=== PATIENT | male | born 1950 | race Caucasian/White ===

== ENCOUNTER 2016-07-24 05:10 | Inpatient (IN) | payer OTHER ==
[~2016-07-24] VITALS: Ht 175.3 cm; Wt 128.1 kg
--- NOTE | ~2016-07-24 | HC ---
[facility] [place] [address] CONSULTATION Name: WESTON FUENTES Room #: 241-P [facility] IN M.R.#: [id number] Admission: 07/24/16 Attend Phys: Cas Power MD Discharge: Date of : 46 Report #: [id number] THIS REPORT FOR: //name// CC: Cas Calabrese DATE OF SERVICE: 07/25/2016 CHIEF COMPLAINT: Medical management. HISTORY OF PRESENT ILLNESS: The patient is a 66-year-old male with a history of coronary artery disease, status post CABG x 6 and is needing medical management. In addition to his coronary artery disease, he also has a history of COPD, chronic back pain, and anxiety. He is currently postop day #1, is sitting up in a chair and is doing fair at this time. Other than postoperative pain, he denies any other issues. Nurses report no other problems. PAST MEDICAL HISTORY: Coronary artery disease, status post CABG; chronic back pain, COPD, and chronic narcotic use. MEDICATIONS: He is on Flexeril 10 mg t.i.d., Ativan 1 mg t.i.d. p.r.n., hydroxyzine 25 mg at bedtime, doxycycline 100 b.i.d., Vaughn p.r.n., albuterol p.r.n., 15 daily, piroxicam 10 mg b.i.d., Revatio 20 mg, and trazodone 150 b.i.d. SOCIAL HISTORY: He has smoked 3 packs per day for 15 years. He quit smoking. Does not drink heavily. FAMILY HISTORY: Reviewed and noncontributory. ALLERGIES: ADHESIVE TAPE. PHYSICAL EXAMINATION: VITAL SIGNS: Temperature 97.8, pulse 69, blood pressure 105/72, O2 sat 100% on 1 liter. GENERAL: He is sleepy, sitting up in a chair, but arousable, in no acute respiratory distress. HEENT: Normocephalic, atraumatic. Pupils equal. NECK: Supple. CARDIOVASCULAR: Regular rate and rhythm. No murmurs. CHEST: Dressings chest tubes were clean, dry and intact. ABDOMEN: Soft, no distention or tenderness. EXTREMITIES: No edema with STDs. NEUROLOGIC: Nonfocal. LABORATORY DATA AND TESTING: Chest x-ray showed no acute process. White count [facility] [address] [place] [address] CONSULTATION Name: WESTON FUENTES Room #: 241-P [facility] IN .R.#: [id number] Admission: 07/24/16 Attend Phys: Cas Power MD Discharge: Date of : 46 Report #: [id number] of 40, H and H of 10 and 31, platelets 132. Sodium 140, potassium 4.4, BUN and creatinine 12 and 1.1, total CO2 of 24. ASSESSMENT AND PLAN: 1. Status post coronary artery bypass graft x 6. Continue postop care per Cardiology. 2. Chronic obstructive pulmonary disease. Continue p.r.n. nebs. 3. Chronic back pain with chronic narcotics use. Continue pain management. 4. Morbid obesity. 5. Deep venous thrombosis prophylaxis with sequential compression devices. Thank you kindly for this consult. We will follow with you. By: 1412 15 Rosamaria Michael MD /nt
--- NOTE | ~2016-07-24 | O ---
[facility] [place] [address] OPERATIVE REPORT Name: WESTON FUENTES Room #: 217-P [facility] IN M.R.#: [id number] Admission: 07/24/16 Attend Phys: Cas Power MD Discharge: Date of : 46 Report #: [id number] THIS REPORT FOR: //name// CC: Cas Calabrese DATE OF SURGERY: 07/24/2016 PREOPERATIVE DIAGNOSIS: Coronary artery disease. POSTOPERATIVE DIAGNOSIS: Coronary artery disease. OPERATION: Coronary artery bypass x 6 including left internal mammary artery to left anterior descending artery, saphenous vein to diagonal, ramus, marginal 1, and marginal 2 and saphenous vein to posterior descending artery and endoscopic harvest, left greater saphenous vein. SURGEON: Cas Power M.D. LINSEED OIL ORDER FILLER: Liam. ANESTHESIA: General. INDICATIONS: The patient is a 66-year-old with severe 3-vessel coronary artery disease. The patient presented over the past weekend with heart failure and was found to have important 3-vessel coronary artery disease, left ventricular function was reasonable. FINDINGS AND TECHNIQUE: After general anesthesia was established, saphenous vein was harvested using an endoscopic approach and prepared for use as a conduit. Exposure was obtained through median sternotomy. Left internal mammary artery was harvested. Pericardial well was made. Cannulation sutures were placed. Heparin was given. Aorta was cannulated. The right atrium was cannulated. Cardioplegia needle was positioned in the aortic root. Retrograde cardioplegic catheter was placed in the coronary sinus. Cardiopulmonary bypass was established. The aorta was cross clamped antegrade then retrograde cardioplegia were given. Ice was poured in the pericardial well. The heart was stopped. During electromechanical arrest, the distal anastomoses were performed and end-to-side anastomosis was made between the vein and the posterior descending artery. Cold cardioplegia was given. A separate segment of vein was sewn in end-to-side fashion to the second marginal artery. Cold cardioplegia was given. Same segment of vein was sewn in [id number]-lv-hpmp fashion to the first marginal artery. Cold cardioplegia was given. Same segment of vein was sewn in [facility] [address] [place] [address] OPERATIVE REPORT Name: WESTON FUENTES Room #: 217-P [facility] IN M.R.#: [id number] Admission: 07/24/16 Attend Phys: Cas Power MD Discharge: Date of : 46 Report #: [id number] obtd-rt-[id number] fashion in the ramus intermedius. Cold cardioplegia was given. Same segment of vein was sewn in dppn-jl-rtmm fashion to the diagonal artery. Cold cardioplegia was given. Left internal mammary artery was sewn in end-to-side fashion to the left anterior descending artery. Patency of this vessel was checked with the temperature technique. Cold cardioplegia was given. Two proximal anastomoses were performed. When these were complete, warm retrograde cardioplegia was given followed by warm continuous blood to the coronary sinus. When this infusion was complete, crossclamp was removed, de-airing maneuvers were performed. The anastomoses were inspected and found to be satisfactory. As the patient warmed, nice cardiac activity resumed, chest tubes and pacing wires were placed, a marker was placed around the proximal anastomoses. When the patient was warmed, he was weaned from cardiopulmonary bypass. Venous cannula was removed. Protamine was given, the aortic cannula was removed. Flows were measured in the bypass grafts. Flow in the graft to the right side was 30 mL per minute. Flow in the graft to the left side was 100 mL per minute. A good Doppler signal was audible in the internal mammary artery. Total cross clamp time was 143 minutes, total pump time was 166 minutes. When hemostasis was satisfactory, chest was irrigated with antibiotic solution and closed in the usual fashion. The patient was taken to the Intensive Care Unit in good condition having tolerated the procedure well. All counts reported as correct. <ELECTRONICALLY SIGNED> By: Cas Power MD 07/30/162009 1008 1211 Cas Power MD /nt
--- NOTE | ~2016-07-24 | HC ---
[facility] [place] [address] CONSULTATION Name: WESTON FUENTES Room #: 217-P [facility] IN M.R.#: [id number] Admission: 07/24/16 Attend Phys: Cas Power MD Discharge: Date of : 46 Report #: [id number] THIS REPORT FOR: //name// CC: Cas Calabrese DATE OF SERVICE: 07/30/2016 IDENTIFICATION: Psychiatric consultation is requested for delirium. HISTORY OF PRESENT ILLNESS: The patient is a 66-year-old male with no reported underlying psychiatric history of anxiety. He is not reported to have any history of cruzito, psychosis or substance abuse. The patient is postop day #6 after coronary artery bypass graft. He has had intermittent confusion, disorientation, agitation, anxiety and insomnia. Mental status had cleared and plan was for him to go home today, but confusion returned once again. He has been wanting to leave the hospital. ALLERGIES: Reviewed, available in the chart. MEDICATIONS: Reviewed and include Ativan 1 mg every 6 hours as needed and Haldol 1 mg every 4 hours as needed. PAST MEDICAL HISTORY: Coronary artery disease, status post coronary artery bypass graft and COPD. FAMILY HISTORY: Noncontributory. SOCIAL HISTORY: The patient's daughter is supportive and involved in his care. He has quit smoking cigarettes. MENTAL STATUS EXAMINATION: Adequate hygiene, restless, mildly slurred speech. Thought process tangential. No hallucinations or delusions. No suicidal or homicidal ideation. Confused, poor short-term memory. Poor attention and concentration. Insight and judgment overall poor. DIAGNOSIS: Delirium. PLAN: I agree with the use of Haldol. We will add an oral dose to be given as needed as well. Keep benzodiazepines to a minimum, but will not discontinue them entirely as the patient would be at risk for withdrawal symptoms. Currently, the patient remains confused and is unstable for discharge. Thank you for this consultation. I reviewed the treatment plan with the [facility] [address] [place] [address] CONSULTATION Name: WESTON FUENTES Room #: 217-P [facility].#: [id number] Admission: 07/24/16 Attend Phys: Cas Power MD Discharge: Date of : 46 Report #: [id number] patient's daughter. Please do not hesitate to contact me with any questions or concerns. By: [id number] Marlen Melchor MD /nt
--- NOTE | ~2016-07-24 | EKG ---
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 : 1950 Requested By: Abhi Wheeler Order Number: [id number] MD: Harish Veliz Measurements Intervals [place] Rate: 73 P: 54 FL: 163 QRS: 20 QRSD: 90 T: 28 QT: 510 QTc: 563 Interpretive Statements Sinus rhythm Small inferior Q waves Prolonged QT interval Compared to ECG 07/18/2016 20:16:35 Nons[address] change in the ST in T wave segments Electronically Signed On 07-25-2016 9:12:08 TELEVISION MECHANIC by Harish Veliz [email or web address] <ELECTRONICALLY SIGNED> By: Harish Veliz MD, [facility] 07/25/16911 1644 164 Harish Veliz MD, [facility] /EPI
--- NOTE | ~2016-07-24 | EKG ---
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: joseph : 1950 Requested By: Abhi Wheeler Order Number: [id number] MD: Harish Veliz Measurements Intervals [place] Rate: 67 P: 47 [place]: 157 QRS: 10 QRSD: 96 T: 0 QT: 491 QTc: 519 Interpretive Statements Sinus rhythm Inferior infarct, old Nonspecific T wave abnormality Compared to ECG 07/24/2016 16:44:20 No significant change was found Electronically Signed On 07-28-2016 9:49:07 CDT by Harish Veliz [email or web address] <ELECTRONICALLY SIGNED> By: Harish Veliz MD, [facility] 07/28/16 0949 3 3 Harish Veliz MD, [facility] /EPI
[~2016-07-24 05:10] MED LIST: ASPIR 8181 MG PO; ATIVAN1 MG PO; ATORVASTATIN CA40 MG PO; DOXYCYCLINE 10100 MG PO; FELDENE10 MG PO; FLEXERIL PO; HYDROXYZINE HCL25 M1 PO; NITROGLYCERIN0.4 MG SUBLING; NORCO 10-325 T1 EACH PO; PHENTERMINE HCL15 MG PO; REVATIO20 MG PO; TOPROL XL25 MG PO; TRAZODONE 150150 M1 PO; VALIUM5 MG PO; VENTOLIN HFA 1818 GM INH
[2016-07-24 06:42] LABS: URINE BILIRUBIN NEGATIVE (Negative); URINE BLOOD NEGATIVE (Negative); URINE COLOR YELLOW; URINE GLUCOSE-RANDOM* NEGATIVE (Negative); URINE KETONES NEGATIVE (Negative); URINE NITRITE NEGATIVE (Negative); URINE PROTEIN (DIPSTICK) NEGATIVE (Negative); URINE UROBILINOGEN 0.2 E.U./dl (0.2-1.0)
[2016-07-24 14:44] LABS: HEMATOCRIT 30.6 % (42.0-52.0); HEMOGLOBIN 10.1 gm/dL (14.0-18.0); MCH 27.7 pg (26.0-34.0); MCHC 33.1 g/dL (28.0-37.0); MCV 83.8 fL (80.0-100.0); RBC 3.66 mil/uL (4.50-6.00); RDW 14.2 % (10.5-14.5); WBC 18.5 thou/uL (4.0-11.0)
[2016-07-24 15:02] LABS: APTT 28.2 Seconds (24.5-32.8); FIBRINOGEN 150.2 mg/dL (210-360); INR 1.3; PROTIME 13.2 Seconds (9.3-11.4)
[2016-07-24 15:11] LABS: POC BE 2 mmol/L (-2.0 to +3.0); POC CA IONIZED 4.1 mg/dL (4.5-5.3); POC FiO2 100 %; POC GLUCOSE 137 mg/dL (70-99); POC HCO3 27.5 mmol/L (22.0-26.0); POC HEMOGLOBIN 9.2 gm/dL (14.0-18.0); POC POTASSIUM 5.9 mmol/L (3.5-5.1); POC SODIUM 133 mmol/L (136-145); POC pCO2 46.8 mmHg (35.0-45.0); POC pH 7.377 (7.360-7.450)
[2016-07-24 15:11] LABS: POC BE -3 mmol/L (-2.0 to +3.0); POC CA IONIZED 4.2 mg/dL (4.5-5.3); POC FiO2 100 %; POC GLUCOSE 124 mg/dL (70-99); POC HCO3 23.2 mmol/L (22.0-26.0); POC HEMOGLOBIN 10.2 gm/dL (14.0-18.0); POC POTASSIUM 4.6 mmol/L (3.5-5.1); POC SODIUM 134 mmol/L (136-145); POC pCO2 46.6 mmHg (35.0-45.0); POC pH 7.306 (7.360-7.450)
[2016-07-24 15:11] LABS: POC BE 2 mmol/L (-2.0 to +3.0); POC CA IONIZED 4.1 mg/dL (4.5-5.3); POC FiO2 100 %; POC GLUCOSE 135 mg/dL (70-99); POC HEMOGLOBIN 9.5 gm/dL (14.0-18.0); POC POTASSIUM 5.8 mmol/L (3.5-5.1); POC SODIUM 133 mmol/L (136-145); POC pCO2 47.2 mmHg (35.0-45.0); POC pH 7.366 (7.360-7.450)
[2016-07-24 15:11] LABS: POC BE 1 mmol/L (-2.0 to +3.0); POC CA IONIZED 4.1 mg/dL (4.5-5.3); POC FiO2 100 %; POC GLUCOSE 127 mg/dL (70-99); POC HEMOGLOBIN 9.9 gm/dL (14.0-18.0); POC POTASSIUM 4.6 mmol/L (3.5-5.1); POC SODIUM 133 mmol/L (136-145); POC pCO2 51.6 mmHg (35.0-45.0); POC pH 7.326 (7.360-7.450)
[2016-07-24 15:11] LABS: POC BE 1 mmol/L (-2.0 to +3.0); POC CA IONIZED 4.2 mg/dL (4.5-5.3); POC FiO2 80 %; POC GLUCOSE 127 mg/dL (70-99); POC HCO3 26.7 mmol/L (22.0-26.0); POC HEMOGLOBIN 9.5 gm/dL (14.0-18.0); POC POTASSIUM 4.9 mmol/L (3.5-5.1); POC SODIUM 133 mmol/L (136-145); POC pCO2 46.6 mmHg (35.0-45.0); POC pH 7.366 (7.360-7.450)
[2016-07-24 15:11] LABS: POC BE 1 mmol/L (-2.0 to +3.0); POC CA IONIZED 4.4 mg/dL (4.5-5.3); POC FiO2 100 %; POC GLUCOSE 129 mg/dL (70-99); POC HEMOGLOBIN 11.9 gm/dL (14.0-18.0); POC POTASSIUM 4.3 mmol/L (3.5-5.1); POC SODIUM 136 mmol/L (136-145); POC pCO2 42.1 mmHg (35.0-45.0); POC pH 7.399 (7.360-7.450)
[2016-07-24 15:11] LABS: POC BE 3 mmol/L (-2.0 to +3.0); POC CA IONIZED 4.5 mg/dL (4.5-5.3); POC FiO2 100 %; POC GLUCOSE 99 mg/dL (70-99); POC HCO3 27.9 mmol/L (22.0-26.0); POC HEMOGLOBIN 12.9 gm/dL (14.0-18.0); POC POTASSIUM 4.6 mmol/L (3.5-5.1); POC SODIUM 137 mmol/L (136-145); POC pCO2 43.5 mmHg (35.0-45.0); POC pH 7.415 (7.360-7.450)
[2016-07-24 15:11] LABS: POC BE -2 mmol/L (-2.0 to +3.0); POC CA IONIZED 4.8 mg/dL (4.5-5.3); POC FiO2 100 %; POC GLUCOSE 121 mg/dL (70-99); POC HCO3 23.2 mmol/L (22.0-26.0); POC HEMOGLOBIN 9.2 gm/dL (14.0-18.0); POC SODIUM 134 mmol/L (136-145); POC pCO2 41.6 mmHg (35.0-45.0); POC pH 7.356 (7.360-7.450)
[2016-07-24 15:16] LABS: POC BE 2 mmol/L (-2.0 to +3.0); POC CA IONIZED 4.1 mg/dL (4.5-5.3); POC FiO2 100 %; POC GLUCOSE 135 mg/dL (70-99); POC HCO3 27.6 mmol/L (22.0-26.0); POC HEMOGLOBIN 9.2 gm/dL (14.0-18.0); POC POTASSIUM 5.1 mmol/L (3.5-5.1); POC SODIUM 132 mmol/L (136-145); POC pCO2 47.6 mmHg (35.0-45.0); POC pH 7.371 (7.360-7.450)
[2016-07-24 15:16] LABS: POC BE -2 mmol/L (-2.0 to +3.0); POC CA IONIZED 4.6 mg/dL (4.5-5.3); POC FiO2 100 %; POC GLUCOSE 114 mg/dL (70-99); POC HCO3 23.9 mmol/L (22.0-26.0); POC HEMOGLOBIN 11.6 gm/dL (14.0-18.0); POC POTASSIUM 4.6 mmol/L (3.5-5.1); POC SODIUM 137 mmol/L (136-145); POC pCO2 44.9 mmHg (35.0-45.0); POC pH 7.333 (7.360-7.450)
[2016-07-24 15:30] LABS: ABG SAMPLE TYPE ARTERIAL; BE(vivo) -3.4 mmol/L (-2 to +3); HCO3 22.4 mmol/L (22.0-26.0); LACTATE 3.04 mmol/L (0.5-2.0); O2(CT) 16.7 mL/dL (15.0-23.0); O2Hb 96.8 % (92.0-98.0); PCO2 43.4 mmHg (35.0-45.0); PO2 129.5 mmHg (80.0-100.0); pH 7.331 (7.360-7.450); sO2 98.4 % (92.0-98.0); tCO2 23.8 mmol/L (24.0-30.0)
[2016-07-24 15:31] LABS: ABG COMMENT CMV; STICK SITE ALINE; TIDAL VOLUME 670 ml
[2016-07-24 15:46] LABS: HEMATOCRIT 33.9 % (42.0-52.0); HEMOGLOBIN 11.4 gm/dL (14.0-18.0); MCH 27.7 pg (26.0-34.0); MCHC 33.5 g/dL (28.0-37.0); MCV 82.6 fL (80.0-100.0); RBC 4.1 mil/uL (4.50-6.00); RDW 14.2 % (10.5-14.5); WBC 20.1 thou/uL (4.0-11.0)
[2016-07-24 15:55] LABS: CREATININE 1.2 mg/dL (0.6-1.3); POTASSIUM 4.6 mmol/L (3.5-5.1)
[2016-07-24 19:31] LABS: HEMATOCRIT 33.5 % (42.0-52.0); HEMOGLOBIN 11.1 gm/dL (14.0-18.0); MCH 27.7 pg (26.0-34.0); MCHC 33.1 g/dL (28.0-37.0); MCV 83.6 fL (80.0-100.0); RDW 14.3 % (10.5-14.5)
[2016-07-24 19:34] LABS: ABG SAMPLE TYPE ARTERIAL; BE(vivo) -4.5 mmol/L (-2 to +3); HCO3 21.7 mmol/L (22.0-26.0); LACTATE 2.28 mmol/L (0.5-2.0); O2Hb 97.3 % (92.0-98.0); PCO2 44.3 mmHg (35.0-45.0); STICK SITE LINE; pH 7.307 (7.360-7.450); sO2 98.8 % (92.0-98.0)
[2016-07-24 19:35] LABS: TIDAL VOLUME 670 ml
[2016-07-24 19:45] LABS: CALCIUM 8.1 mg/dL (8.5-10.1); CREATININE 1.4 mg/dL (0.6-1.3); POTASSIUM 5.3 mmol/L (3.5-5.1)
[2016-07-24 20:37] LABS: ABG SAMPLE TYPE ARTERIAL; HCO3 22.3 mmol/L (22.0-26.0); O2(CT) 15.7 mL/dL (15.0-23.0); O2Hb 97.8 % (92.0-98.0); PCO2 36.6 mmHg (35.0-45.0); PO2 199.6 mmHg (80.0-100.0); STICK SITE LINE; TIDAL VOLUME 670 ml; pH 7.403 (7.360-7.450); sO2 99.4 % (92.0-98.0); tCO2 23.4 mmol/L (24.0-30.0)
[2016-07-25 01:45] LABS: ABG SAMPLE TYPE ARTERIAL; BE(vivo) -2.3 mmol/L (-2 to +3); HCO3 23.1 mmol/L (22.0-26.0); LACTATE 2.49 mmol/L (0.5-2.0); O2(CT) 14.5 mL/dL (15.0-23.0); PCO2 42.3 mmHg (35.0-45.0); PO2 76.3 mmHg (80.0-100.0); STICK SITE LINE; pH 7.355 (7.360-7.450); sO2 94.7 % (92.0-98.0); tCO2 24.4 mmol/L (24.0-30.0)
[2016-07-25 01:46] LABS: ABG COMMENT CPAP TRIAL; FIO2 40 %; Pressure Support 6 cm H20
[2016-07-25 03:17] LABS: ABG SAMPLE TYPE ARTERIAL; BE(vivo) -2.4 mmol/L (-2 to +3); HCO3 23.8 mmol/L (22.0-26.0); LACTATE 2.24 mmol/L (0.5-2.0); O2(CT) 15.4 mL/dL (15.0-23.0); O2Hb 96.6 % (92.0-98.0); PCO2 46.9 mmHg (35.0-45.0); sO2 98.1 % (92.0-98.0); tCO2 25.2 mmol/L (24.0-30.0)
[2016-07-25 03:18] LABS: Face Shield 50 %; STICK SITE LINE; VDS POST EXTUBATION cc; pH 7.323 (7.360-7.450)
[2016-07-25 04:56] LABS: HEMATOCRIT 31.3 % (42.0-52.0); HEMOGLOBIN 10.4 gm/dL (14.0-18.0); MCH 27.7 pg (26.0-34.0); MCHC 33.1 g/dL (28.0-37.0); MCV 83.7 fL (80.0-100.0); RBC 3.74 mil/uL (4.50-6.00); RDW 14.6 % (10.5-14.5); WBC 14.3 thou/uL (4.0-11.0)
[2016-07-25 05:07] LABS: CALCIUM 8.2 mg/dL (8.5-10.1); CREATININE 1.1 mg/dL (0.6-1.3); POTASSIUM 4.4 mmol/L (3.5-5.1)
[2016-07-26 04:38] LABS: HEMATOCRIT 26.2 % (42.0-52.0); HEMOGLOBIN 8.7 gm/dL (14.0-18.0); MCH 27.6 pg (26.0-34.0); MCHC 33.1 g/dL (28.0-37.0); MCV 83.3 fL (80.0-100.0); RBC 3.15 mil/uL (4.50-6.00); RDW 14.7 % (10.5-14.5); WBC 14.3 thou/uL (4.0-11.0)
[2016-07-26 04:53] LABS: CALCIUM 8.2 mg/dL (8.5-10.1); CREATININE 0.9 mg/dL (0.6-1.3); POTASSIUM 3.9 mmol/L (3.5-5.1)
[2016-07-27 06:23] LABS: HEMATOCRIT 24.7 % (42.0-52.0); HEMOGLOBIN 8.3 gm/dL (14.0-18.0); MCH 27.7 pg (26.0-34.0); MCHC 33.6 g/dL (28.0-37.0); MCV 82.6 fL (80.0-100.0); RBC 2.99 mil/uL (4.50-6.00); RDW 13.9 % (10.5-14.5); WBC 11.9 thou/uL (4.0-11.0)
[2016-07-27 06:38] LABS: CALCIUM 8.1 mg/dL (8.5-10.1); CREATININE 1.1 mg/dL (0.6-1.3); POTASSIUM 3.7 mmol/L (3.5-5.1)
[2016-07-28 03:58] LABS: CALCIUM 8.3 mg/dL (8.5-10.1); CREATININE 0.9 mg/dL (0.6-1.3); POTASSIUM 3.8 mmol/L (3.5-5.1)
[2016-07-28 04:35] LABS: HEMATOCRIT 25.6 % (42.0-52.0); HEMOGLOBIN 8.7 gm/dL (14.0-18.0); MCH 28.3 pg (26.0-34.0); MCHC 33.9 g/dL (28.0-37.0); MCV 83.5 fL (80.0-100.0); RBC 3.07 mil/uL (4.50-6.00); RDW 14.3 % (10.5-14.5); WBC 10.9 thou/uL (4.0-11.0)
[2016-07-29 03:51] LABS: HEMATOCRIT 24.1 % (42.0-52.0); MCHC 33.3 g/dL (28.0-37.0); RBC 2.87 mil/uL (4.50-6.00); WBC 9.2 thou/uL (4.0-11.0)
[2016-07-29 04:22] LABS: CALCIUM 8.1 mg/dL (8.5-10.1); CREATININE 0.8 mg/dL (0.6-1.3); POTASSIUM 4.3 mmol/L (3.5-5.1)
[2016-07-30 19:23] LABS: URINE BILIRUBIN NEGATIVE (Negative); URINE BLOOD NEGATIVE (Negative); URINE COLOR YELLOW; URINE GLUCOSE-RANDOM* NEGATIVE (Negative); URINE KETONES NEGATIVE (Negative); URINE LEUKOCYTES-REFLEX NEGATIVE (Negative); URINE PROTEIN (DIPSTICK) NEGATIVE (Negative); URINE SPECIFIC GRAVITY <= 1.005 (1.003-1.035); URINE UROBILINOGEN 0.2 E.U./dl (0.2-1.0)
[2016-07-31 03:51] LABS: HEMATOCRIT 25.8 % (42.0-52.0); HEMOGLOBIN 8.4 gm/dL (14.0-18.0); MCH 27.3 pg (26.0-34.0); MCHC 32.7 g/dL (28.0-37.0); MCV 83.7 fL (80.0-100.0); RBC 3.08 mil/uL (4.50-6.00); RDW 13.9 % (10.5-14.5); WBC 11.2 thou/uL (4.0-11.0)
[2016-07-31 04:06] LABS: CALCIUM 8.6 mg/dL (8.5-10.1)
[2016-08-01] MEDS ORDERED: MIRALAX17 GM PO (09:36)
[2016-08-01] MEDS ORDERED: COLACE 100 MG100 MG PO (09:36)
== END 2016-08-01 10:41 | disposition home health service (06) | DRG 235 ==
LOC: TBA 05:10 → ICU 05:10 → PRE 11:24 → ICU 15:50 → 2N 07-28 18:36
PROVIDERS: Hospitalist; Nurse Practitioner Acute Care; Physician Assistant; Surgery Vascular Surgery
PROC: 5A1221Z Performance of Cardiac Output, Continuous (ICD-10-PCS; principal; 2016-07-24)
PROC: 02100Z9 Bypass Coronary Artery, One Artery from Left Internal Mammary, Open Approach (ICD-10-PCS; principal; 2016-07-24)
PROC: 021309W Bypass Coronary Artery, Four or More Arteries from Aorta with Autologous Venous Tissue, Open Approach (ICD-10-PCS; principal; 2016-07-24)
PROC: 06BQ4ZZ Excision of Left Saphenous Vein, Percutaneous Endoscopic Approach (ICD-10-PCS; principal; 2016-07-24)
DX: I25.10 Atherosclerotic heart disease of native coronary artery without angina pectoris (principal); G93.40 Encephalopathy, unspecified; N17.9 Acute kidney failure, unspecified; F05 Delirium due to known physiological condition; Z68.41 Body mass index [BMI] 40.0-44.9, adult; I10 Essential (primary) hypertension; J44.9 Chronic obstructive pulmonary disease, unspecified; G89.29 Other chronic pain; M54.9 Dorsalgia, unspecified; E66.01 Morbid (severe) obesity due to excess calories; E78.5 Hyperlipidemia, unspecified; D64.9 Anemia, unspecified; Z87.891 Personal history of nicotine dependence
CPT/HCPCS: 10078; 10081; 47000; 47001; 47002; 47297; 48888; 50010; 50249; 50409; 50456; 50498; 50668; 51301; 52131; 52259; 53327; 54118; 56524; 56525; 56526; 56527; 56528; 56531; 56534; 56639; 56660; 56805; 56898; 57093; 62110; 62950; 64029; 65002; 65003; 65020; 65043; 65090; 65120